=== PATIENT | female | born 1955 | race Caucasian/White ===

== ENCOUNTER 2020-10-28 19:38 | Emergency (ER) | payer MEDICAID ==
[~2020-10-28] VITALS: Ht 167.6 cm; Wt 76.4 kg
[2020-10-28] MEDS ORDERED: HYDR-3965 PO (21:44)
--- NOTE | 2020-10-28 22:01 | NUR ---
patient received discharge instuctions and acknowledged understanding. patient also received rx for pain. patient vs wnl, had no complaints. dc home.
[2020-10-28 22:03] VITALS: BP 134/88
== END 2020-10-28 22:04 | disposition home or self-care (01) ==
LOC: ER 19:40
DX: S62.394A Other fracture of fourth metacarpal bone, right hand, initial encounter for closed fracture (principal); I10 Essential (primary) hypertension; E11.9 Type 2 diabetes mellitus without complications; W12.XXXA Fall on and from scaffolding, initial encounter; Y93.89 Activity, other specified; Y92.89 Other specified places as the place of occurrence of the external cause; Y99.8 Other external cause status; Z88.2 Allergy status to sulfonamides
CPT/HCPCS: 29125; 73110; 99284